=== PATIENT | male | born 1930 | race Caucasian/White ===

== ENCOUNTER → 2017-01-24 | Outpatient (CLI) | payer MEDICARE, OTHER | END | disposition home or self-care (01) | LOC: PCVCCLINIC 13:56 | PROVIDERS: ATTEND Internal Medicine Cardiovascular Disease | DX: I77.810 Thoracic aortic ectasia (principal); R00.1 Bradycardia, unspecified; E78.00 Pure hypercholesterolemia, unspecified; Z86.79 Personal history of other diseases of the circulatory system; Z90.79 Acquired absence of other genital organ(s) | CPT/HCPCS: 93005; G0463 ==

== ENCOUNTER → 2017-02-21 | Outpatient (CLI) | payer MEDICARE, OTHER ==
--- NOTE | 2017-02-21 16:21 | PCVCIMAG ---
APPROVED REPORT Study performed: 02/21/2017 13:51:36 EXAM: Comprehensive 2D, Doppler, and color-flow Echocardiogram Patient Location: Echo lab Status: routine BSA: 1.71 HR: 45 bpmBP: 114/58 mmHg Rhythm: Bradycardia Other Information Study Quality: Adequate Indications Bradycardia Aortic Regurgitation, Ventricular Tachycardia 2D Dimensions LVEF(%): 73.24 (>50%) IVSd: 9.43 (7-11mm) LVDd: 45.70 mm PWd: 9.80 (7-11mm)Ascending Ao: 31.51 (22-36mm) LVDs: 26.44 (25-40mm) Left Atrium: 33.94 (27-40mm) Aortic Root: 29.67 mm LV Single Plane 4CH: 60.68 % LV Single Plane 2CH: 66.19 %Alcala's LVEF: 63.44 % Biplane EF: 64.0 % Volumes Left Atrial Volume (Systole) Single Plane 4CH: 38.97 mLSingle Plane 2CH: 65.01 mL LA ESV Index: 30.00 mL/m2 Aortic Valve AoV Peak Darron.: 1.37 m/s AO Peak Gr.: 7.46 mmHgLVOT Max P.27 mmHg LVOT Max V: 0.90 m/s AI Vmax: 4.80 m/s AI [place]: 2.51 m/s2 AI PHT: 554.56 ms Mitral Valve E/A Ratio: 0.9 MV Decel. Time: 319.43 ms MV E Max Darron.: 0.47 m/s MV A Darron.: 0.54 m/s IVRT: 121.11 ms Pulmonary Valve PV Peak Darron.: 0.66 m/sPV Peak Gr.: 1.75 mmHg Pulmonary Vein P Vein S: 0.29 m/sP Vein A: 0.32 m/s P Vein D: 0.51 m/sP Vein A Dur.: 176.5 msec P Vein S/D Ratio: 0.57 Tricuspid Valve TR Peak Darron.: 2.87 m/s TR Peak Gr.: 33.04 mmHg Left Ventricle The left ventricle is normal size. There is normal LV segmental wall motion. There is normal left ventricular wall thickness. Left ventricular systolic function is normal. The left ventricular ejection fraction is within the normal range. LVEF is 55-60%. Grade I - abnormal relaxation pattern. Right Ventricle The right ventricle is normal size. The right ventricular systolic function is normal. Atria The left atrium size is normal. The right atrium size is normal. Aortic Valve The aortic valve is normal in structure. Mild aortic regurgitation. There is no aortic valvular stenosis. Mitral Valve The mitral valve is normal in structure. Mild mitral regurgitation. No evidence of mitral valve stenosis. Tricuspid Valve The tricuspid valve is normal in structure. Mild tricuspid regurgitation with PAP of 42 mmHg. Pulmonic Valve The pulmonary valve is normal in structure. Trace pulmonic regurgitation. Great Vessels The aortic root is normal in size. IVC is normal in size and collapses with >50% inspiration Pericardium There is no pericardial effusion. <Conclusion> The left ventricle is normal size. There is normal left ventricular wall thickness. LVEF is 55-60%. Grade I - abnormal relaxation pattern. The right ventricle is normal size. The left atrium size is normal. Mild aortic regurgitation. Mild mitral regurgitation. Mild tricuspid regurgitation with PAP of 42 mmHg. There is no pericardial effusion.
--- NOTE | 2017-02-21 16:36 | PCVCIMAG ---
APPROVED REPORT Patient Location: Echo lab Room #: Stress Nurse: Kathy Negro RN Treadmill Stress Test Indications- Assess chronotropic response, bradycardia, Hx of Non-sustained VT, dyspnea The patient exercised according to the ROGELIO protocol for 7:03 mins; achieving a work level of 10.1 METS: The resting heart rate of 45 bpm ghassan to a maximal heart rate of 157 bpm. This value represents 118% of the maximal, age-predicted heart rate. The resting blood pressure of 114/58 mmHg, ghassan to a maximum blood pressure of 184/70 mmHg. The exercise test was stopped due to Fatigue and Dyspnea. Symptoms- Dyspnea Conclusion #1 no reproduction of chest pain or angina #2 no diagnostic EKG changes with an appropriate chronotropic response noted no ischemic changes noted #3 intermittent rate dependent bundle no evidence of significant ectopy with an appropriate chronotropic response as stated above Impression negative treadmill stress test for ischemia with an appropriate chronotropic response and intermittent rate dependent bundle noted.
== END | disposition home or self-care (01) ==
LOC: PCVCIMAG 14:15
PROVIDERS: ATTEND Internal Medicine Cardiovascular Disease
DX: I08.3 Combined rheumatic disorders of mitral, aortic and tricuspid valves (principal); I47.2 Ventricular tachycardia; I77.810 Thoracic aortic ectasia; E78.00 Pure hypercholesterolemia, unspecified; Z86.79 Personal history of other diseases of the circulatory system
CPT/HCPCS: 93017; 93306